=== PATIENT | female | born 1990 | race African-American/Black ===

== ENCOUNTER 2016-04-29 22:19 | Emergency (ER) | payer MEDICAID ==
[~2016-04-29] VITALS: Ht 162.6 cm; Wt 90.3 kg
[~2016-04-29 22:19] MED LIST: ABILIFY5 MG PO; DEPAKOTE ER500 MG PO; RISPERDAL1 M1 PO; ZOLOFT25 MG PO; ZYPREXA2.5 MG PO
--- NOTE | 2016-04-29 22:22 | NUR ---
PT DEBRA BLS. TAKEN TO BED 2
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
--- NOTE | 2016-04-29 22:25 | NUR ---
Dr. Maurer evaluating patient at bedside.
[2016-04-29 22:28] VITALS: BP 115/56
[2016-04-29] MEDS ORDERED: risperiDONE 1 MG TAB PO STA (22:32)
--- NOTE | 2016-04-29 22:34 | NUR ---
PT DENIES BEING ALLERGIC TO LORAZEPAM
[2016-04-29] MEDS ORDERED: LORazepam 1 MG TAB PO ONE (22:35)
--- NOTE | 2016-04-29 22:40 | NUR ---
RISPERIDAL 1MG NOT AVAILABLE IN [facility], BARB SUP NOTIFIED
--- NOTE | 2016-04-29 23:01 | NUR ---
JOSE JUST BROUGHT RISPERIDONE 1MG TO ER
[2016-04-29] MEDS ORDERED: risperiDONE 1 MG TAB ONE (23:03)
--- NOTE | 2016-04-29 23:33 | NUR ---
VITAL SIGNS ARE STABLE, PT STILL AGITATED, PIN CURRENTLY PUTTING STRAIGHT CATH IN PT NOW
--- NOTE | 2016-04-30 00:27 | NUR ---
PT MOVED TO BED 3
--- NOTE | 2016-04-30 00:34 | NUR ---
Patient appears to be resting comfortably in bed. Vital Signs within normal limits. Respirations even and unlabored.
--- NOTE | 2016-04-30 01:31 | NUR ---
Patient appears to be resting comfortably in bed. Vital Signs within normal limits. Respirations even and unlabored, NO SIGNS OF DISTRESS AT THE MOMENT
--- NOTE | 2016-04-30 02:32 | NUR ---
Patient appears to be resting comfortably in bed. Vital Signs within normal limits. Respirations even and unlabored, NO SIGNS OF DISTRESS AT THE MOMENT
--- NOTE | 2016-04-30 03:28 | NUR ---
Patient appears to be resting comfortably in bed. Vital Signs within normal limits. Respirations even and unlabored, NO SIGNS OF DISTRESS AT THE MOMENT
--- NOTE | 2016-04-30 04:31 | NUR ---
Patient appears to be resting comfortably in bed. Vital Signs within normal limits. Respirations even and unlabored, NO SIGNS OF DISTRESS AT THE MOMENT
--- NOTE | 2016-04-30 05:32 | NUR ---
Patient appears to be resting comfortably in bed. Vital Signs within normal limits. Respirations even and unlabored, NO DISTRESS AT THE MOMENT
--- NOTE | 2016-04-30 06:34 | NUR ---
Patient appears to be resting comfortably in bed. Vital Signs within normal limits. Respirations even and unlabored, NO SIGNS OF DISTRESS AT THE MOMENT
[2016-04-30] MEDS ORDERED: risperiDONE 1 MG TAB PO ONE (07:10)
[2016-04-30] MEDS ORDERED: IBUPROFEN 800 MG TAB PO ONE (07:10)
--- NOTE | 2016-04-30 07:14 | NUR ---
Pt report given to MATTHEW MORGAN . Transfer of care at this time.
--- NOTE | 2016-04-30 07:20 | NUR ---
Pt RECEIVED FROM CATHY FLORES. PT RESTING IN BED AT THIS TIME AWAITING BREAKFAST TRAY TO GIVE WITH MEDS GIVEN PER MAY.
--- NOTE | 2016-04-30 07:55 | NUR ---
BREAKFAST TRAY PROVIDED. MEDS GIVEN PER MAY.
--- NOTE | 2016-04-30 08:27 | NUR ---
REPORT GIVEN TO CATHY TRIPLETT AT [facility]. [facility] WILL CALL BACK TO SPEAK WITH ADMITTING MD FOR POSSIBLE TRANSFER.
--- NOTE | 2016-04-30 09:01 | NUR ---
Patient to be transferred to [facility] ON THE ADULT UNIT ROOM [address]. Is being transferred due to SPECIALIZED LEVEL OF CARE. Receiving facility has accepting physician and available space. ER physician has signed transfer form. Patient or responsible libertarian has agreed to transfer and signed form. Patient belongings inventoried and will be sent with patient. Copy of nursing notes, lab reports, EKG, Physicians Orders and X-rays to be sent with patient. Report called to CATHY SHARIF at receiving facility. [facility] ambulance service has been called for transfer. ETA is 90MINS.
--- NOTE | 2016-04-30 10:22 | NUR ---
[facility] TRANSPORT AT BEDSIDE. REPORT GIVEN. PT AWARE OF TRANSFER. VSS.
[2016-04-30 10:23] VITALS: BP 110/72
== END 2016-04-30 10:22 | disposition designated cancer center or children's hospital (05) ==
LOC: MED 22:19
DX: F20.9 Schizophrenia, unspecified (principal); R45.851 Suicidal ideations; F15.10 Other stimulant abuse, uncomplicated; F31.9 Bipolar disorder, unspecified; I10 Essential (primary) hypertension; Z91.018 Allergy to other foods; Z79.899 Other long term (current) drug therapy
CPT/HCPCS: 36415; 80053; 80305; 81002; 81025; 85025; 85610; 99285; C1758; G0480; G0482